=== PATIENT | female | born 1985 | race Hispanic/Latino ===

== ENCOUNTER → 2018-11-26 | Outpatient (CLI) | payer MEDICAID ==
[~2018-11-26] VITALS: Ht 177.8 cm; Wt 92.8 kg
[~2018-11-26] MED LIST: LACTATED RINGERS 1000ML 1,000 ML IV SCH
[2018-11-26 16:06] LABS: BASOPHILS % (AUTO) 0.6 % (0.0-5.0); EOSINOPHILS % (AUTO) 5.6 % (0.0-8.0); HEMATOCRIT 34.8 % (36-48); LYMPHOCYTES % (AUTO) 23.8 % (21.0-51.0); MEAN CORPUSCULAR HEMOGLOBIN 25.9 pg (27.0-33.0); MEAN CORPUSCULAR HGB CONC 32.3 g/dL (32.0-36.0); MEAN CORPUSCULAR VOLUME 80.1 fL (79-99); MONOCYTES % (AUTO) 6.7 % (3.0-13.0); NEUTROPHILS % (AUTO) 63.3 % (40.0-77.0); PLATELET COUNT (AUTO) 312 K/uL (130-400); RED BLOOD CELL COUNT(AUTO) 4.34 MIL/uL (4.00-5.50); RED CELL DISTRIBUTION WIDTH 18.8 % (11.0-15.5); WHITE BLOOD COUNT (AUTO) 7.1 K/uL (4.8-10.8)
[2018-11-26 16:23] VITALS: BP 125/62
== END ==
LOC: DAH 10:00 → EDSTATUS 14:45
PROVIDERS: ATTEND Obstetrics & Gynecology
DX: Z30.2 Encounter for sterilization (principal); Z53.9 Procedure and treatment not carried out, unspecified reason
CPT/HCPCS: 36415; 84702; 85025; 86850; 86900; 86901; J7120